=== PATIENT | male | born 2000 ===

== ENCOUNTER 2021-10-24 06:50 | Observation (INO) | payer SELFPAY ==
[2021-10-24 07:24] VITALS: BMI 21.1
[2021-10-24] MEDS ORDERED: Morphine 4 MG/ML VIAL SLOW IVP PRN ×2 (08:50→08:54)
[2021-10-24] MEDS ORDERED: Sodium Chloride 0.9% 1,000 ML IV SCH (09:00)
[2021-10-24] MEDS ORDERED: Bupivacaine PF 0.5% 30 ML VIAL ONE (10:26)
[2021-10-24] MEDS ORDERED: Midazolam HCl 2 mg/2 ml Vial ONE (11:29)
[2021-10-24] MEDS ORDERED: Fentanyl 100 MCG/2 ML VIAL ONE (11:29)
[2021-10-24] MEDS ORDERED: PROPOFOL 20 ML ONE (11:29)
[2021-10-24] MEDS ORDERED: Succinylcholine 200 MG/10 ml SYRINGE FS ONE (11:30)
[2021-10-24] MEDS ORDERED: Rocuronium Bromide 10 MG/ML (10ML VIAL) ONE (11:30)
[2021-10-24] MEDS ORDERED: Lidocaine 1% PF 5 ML VIAL ONE (11:30)
[2021-10-24] MEDS ORDERED: Ondansetron PF 4 MG/2 ML Vial ONE (11:31)
[2021-10-24] MEDS ORDERED: Piperacillin/Tazobactam 3.375 GM in Sodium Chloride 0.9% 100 ML IVPB SCH ×2 (12:00→16:00)
[2021-10-24] MEDS ORDERED: Ketorolac Tromethamine 30 MG/ML VIAL ONE (12:38)
[2021-10-24] MEDS ORDERED: HYDROcodone/Acetaminophen 5/325 mg Tablet PO PRN ×2 (13:28)
[2021-10-24 14:19] VITALS: BP 116/56; TEMP 100.3
[2021-10-24] MEDS ORDERED: EPINEPHrine 1 MG/ML AMP ONE (14:43)
== END 2021-10-24 18:29 | disposition home or self-care (01) ==
LOC: CSHTELE 06:50
PROVIDERS: ADMIT Surgery; ATTEND Surgery
DX: K35.891 Other acute appendicitis without perforation, with gangrene (principal)
CPT/HCPCS: 82565; 87070; 87077; 87186; 87205; 88304; J0171; J1885; J2250; J2405; J2704; J3010; J7050; S0020